=== PATIENT | male | born 1940 | race Caucasian/White ===

== ENCOUNTER 2016-12-03 09:29 | Outpatient (CLI) | payer MEDICARE, OTHER | END 2016-12-03 09:30 | disposition home or self-care (01) | LOC: NAV LAB 09:29 | PROVIDERS: ATTEND Neurological Surgery | DX: M54.16 Radiculopathy, lumbar region (principal); M54.14 Radiculopathy, thoracic region | CPT/HCPCS: 36415; 82565 ==